=== PATIENT | male | born 1975 | race Caucasian/White ===

== ENCOUNTER 2016-09-28 04:10 | Emergency (ER) | payer OTHER ==
[2016-09-28 04:25] VITALS: TEMP 97.3
--- NOTE | 2016-09-28 04:40 | EDPHY ---
H & P Stated Complaint: left flank pain radiated to groin, stone noted in urine Time Seen by Provider: 09/28/16 04:33 HPI/ROS: Chief Complaint: Abdominal pain HPI: 41-year-old male with no significant medical history woke this morning with left-sided abdominal pain radiating to his groin. It proceeded to get worse over the next couple hours. He had some nausea no vomiting. No history of the same. Some chills but no fever. Patient came to the emergency depart for evaluation. He went to the bathroom to provide a urine sample and noticed in his urine a stone. Patient states his pain is now significantly improved. ROS: 10 point Review of Systems is negative except as noted in the HPI. PMH: None Medications: None Allergies: No known drug allergies Social History: No smoking, occasional alcohol, no recreational drug use Family History: non-contributory Physical Exam: Gen: Awake, Alert, No Distress HEENT: Nose: no rhinorrhea Eyes: PERRLA, EOMI Mouth: Moist mucosa Neck: Supple, no JVD Chest: nontender, lungs clear to auscultation Heart: S1, S2 normal, no murmur Abd: Soft, mild left lower quadrant tenderness without rebound or guarding, no guarding Back: Mild left CVA tenderness, no midline tenderness Ext: no edema, non-tender Skin: no rash Neuro: CN II-XII intact, Sensation grossly intact, Strength 5/5 in bilateral upper and lower extremities - Personal History Current Tetanus Diphtheria and Acellular Pertussis (TDAP): Unsure - Medical/Surgical History Hx Asthma: No Hx Chronic Respiratory Disease: No Hx Diabetes: No Hx Cardiac Disease: No Hx Renal Disease: No Hx Cirrhosis: No Hx Alcoholism: No Hx HIV/AIDS: No Hx Splenectomy or Spleen Trauma: No Other PMH: shoulder surgery - Social History Smoking Status: Never smoked Constitutional: Initial Vital Signs Temperature (C) 36.3 C 09/28/16 04:23 Heart Rate 54 L 09/28/16 04:23 Respiratory Rate 16 09/28/16 04:23 Blood Pressure 106/65 09/28/16 04:23 O2 Sat (%) 95 09/28/16 04:23 O2 Delivery Mode Room Air Allergies/Adverse Reactions: No Known Allergies Allergy (Unverified 09/22/14 10:35) Home Medications: Medication Instructions Recorded NK [No Known Home Meds] 09/28/16 Medical Decision Making ED Course/Re-evaluation: 41-year-old male passed a kidney stone here. Urinalysis shows hematuria but no signs of infection. Patient's symptoms are improved after passing the stone without any medicines or treatment here. Will discharge with follow up with primary care physician, return for worsening. - Data Points Laboratory Results: 09/28/16 04:20 Urine Color YELLOW Urine Appearance CLEAR Urine pH 5.0 (5.0-7.5) Ur Specific [place] 1.023 (1.002-1.030) Urine Protein NEGATIVE (NEGATIVE) Urine Ketones NEGATIVE (NEGATIVE) Urine Blood 3+ H (NEGATIVE) Urine Nitrate NEGATIVE (NEGATIVE) Urine Bilirubin NEGATIVE (NEGATIVE) Urine Urobilinogen NEGATIVE EU EU (0.2-1.0) Ur Leukocyte Esterase NEGATIVE (NEGATIVE) Urine RBC 25-50 /hpf H /hpf (0-3) Urine WBC 1-3 /hpf /hpf (0-3) Ur Epithelial Cells Not Reported Urine Bacteria TRACE /hpf H /hpf (NONE SEEN) Urine Mucus 3+ /lpf H /lpf (NONE-1+) Urine Glucose NEGATIVE (NEGATIVE) Departure - Departure Disposition: Home, Routine, Self-Care Clinical Impression: Kidney stone Condition: Good Instructions: Kidney Stones (ED) Additional Instructions: Follow up with primary care physician in 2-3 days for re-evaluation. Referrals: Gianni Delvalle MD [Medical Doctor] - As per Instructions
[2016-09-28 04:50] LABS: COLOR YELLOW; LEUKOCYTE ESTERASE,URINE NEGATIVE (NEGATIVE); NITRITE,URINE NEGATIVE (NEGATIVE)
[2016-09-28 04:56] LABS: BACTERIA TRACE /hpf (NONE SEEN); MUCUS 3+ /lpf (NONE-1+); RBC,URINE 25-50 /hpf (0-3)
[2016-09-28 05:28] VITALS: BP 105/73; PULSE 62; RESP 14; O2SAT 91
== END 2016-09-28 05:28 | disposition home or self-care (01) ==
DX: N20.0 Calculus of kidney (principal)
CPT/HCPCS: 82365-90